=== PATIENT | female | born 2000 | race Caucasian/White ===

== ENCOUNTER 2022-07-24 22:46 | Emergency (ER) | payer OTHER, SELFPAY ==
--- NOTE | ~2022-07-24 | CT_ITS ---
EXAMINATION: CT ABDOMEN AND PELVIS WITH CONTRAST CLINICAL INFORMATION: Right lower quadrant pain COMPARISON: None TECHNIQUE: Multidetector volumetric images were obtained from the superior aspect of the liver through the pubic symphysis following administration 85 mL of Omnipaque 350 intravenous contrast. Sagittal and coronal reformatted images were obtained on the technologist's workstation. Oral contrast: No This CT examination was performed using dose optimization techniques as appropriate, variously including the following: *Automated exposure control *Adjustment of mA and/or kV according to patient size (this includes techniques or standardized protocols for targeted exams where dose is matched to indication/reason for exam; i.e. extremities or head) *Use of iterative reconstruction technique DLP: 401 mGy-cm FINDINGS: LUNG BASES: The visualized lung bases are unremarkable. LIVER, GALLBLADDER, AND BILIARY TREE: The liver is normal in size, shape, and attenuation. No focal hepatic lesion or biliary ductal dilatation is present. The gallbladder is unremarkable with no evidence of radiopaque gallstones, gallbladder wall thickening, or obvious pericholecystic inflammatory changes. PANCREAS: Unremarkable. SPLEEN: Unremarkable. ADRENAL GLANDS: Unremarkable. KIDNEYS AND URETERS: The kidneys are normal in size, shape, and attenuation. No hydronephrosis, hydroureter, or calculi seen. No perinephric stranding. BLADDER: Unremarkable. GASTROINTESTINAL TRACT: The stomach is unremarkable. Normal caliber small bowel. No obstruction. Normal appendix. Fluid-filled colon without wall thickening. Stool in the rectum. No free air. Small volume of pelvic free fluid. ABDOMINAL WALL: No significant hernia is appreciated. LYMPH NODES: Normal. VASCULAR: Unremarkable. PELVIC VISCERA: Anteverted uterus. Complex appearing cysts in the right adnexa. The largest measures 2.6 cm. No left adnexal mass. OSSEOUS STRUCTURES: No acute or suspicious osseous abnormality. CT/CT abdomen pelvis w IV con IMPRESSION: Complex right adnexal cystic structures. Small amount of pelvic free fluid. This could be a ruptured cyst, though cannot exclude other process. This can be further evaluated with pelvic ultrasound. Fleischner guidelines were followed.
--- NOTE | ~2022-07-24 | US_ITS ---
EXAMINATION: ULTRASOUND OF THE PELVIS CLINICAL INFORMATION: Lower abdominal/pelvic pain.. COMPARISON: CT from today.. TECHNIQUE: Transabdominal pelvic ultrasound. Doppler evaluation with spectral analysis was performed. A transvaginal study was not performed as the patient declined. FINDINGS: The uterus is normal in size and appearance, measuring 6.7 x 3.1 x 4.9 cm longitudinally, anteroposteriorly and transversely. The endometrial stripe thickness is normal, measuring 0.7 cm in thickness. No focal myometrial mass is seen. The ovaries bilaterally are visualized, with the right ovary measuring 5.8 x 3.3 x 4.2 cm and the left ovary measuring 3.2 x 1.8 x 2.6 cm. Complex thick-walled right ovarian cyst measures 3.9 x 2.6 x 2.4 cm. There are normal arterial and venous spectral waveforms bilaterally. Small volume of pelvic free fluid. US/US pelvic complete IMPRESSION: No active ovarian torsion. Small volume of pelvic free fluid. Prominent complex thick-walled right adnexal cyst, possibly a hemorrhagic cyst. This measures 3.2 cm. No follow-up imaging recommended.
--- NOTE | ~2022-07-24 | US_ITS ---
EXAMINATION: ULTRASOUND OF THE PELVIS CLINICAL INFORMATION: Lower abdominal/pelvic pain.. COMPARISON: CT from today.. TECHNIQUE: Transabdominal pelvic ultrasound. Doppler evaluation with spectral analysis was performed. A transvaginal study was not performed as the patient declined. FINDINGS: The uterus is normal in size and appearance, measuring 6.7 x 3.1 x 4.9 cm longitudinally, anteroposteriorly and transversely. The endometrial stripe thickness is normal, measuring 0.7 cm in thickness. No focal myometrial mass is seen. The ovaries bilaterally are visualized, with the right ovary measuring 5.8 x 3.3 x 4.2 cm and the left ovary measuring 3.2 x 1.8 x 2.6 cm. Complex thick-walled right ovarian cyst measures 3.9 x 2.6 x 2.4 cm. There are normal arterial and venous spectral waveforms bilaterally. Small volume of pelvic free fluid. US/US pelvic ovarian doppler IMPRESSION: No active ovarian torsion. Small volume of pelvic free fluid. Prominent complex thick-walled right adnexal cyst, possibly a hemorrhagic cyst. This measures 3.2 cm. No follow-up imaging recommended.
[2022-07-24 23:23] VITALS: BP 145/85; PULSE 109; RESP 22; TEMP 36.8; O2SAT 100; BMI 20.1
[2022-07-24 23:49] LABS: Baso%MD 0.2 %; Hematocrit 42.4 % (37.0-47.0); Hemoglobin 14.4 g/dl (12.0-16.0); IG%MD 0.4 %; Lymph%MD 7.5 %; Mean Corpuscular Hemoglobin 28.7 pg (27.0-33.0); Mean Corpuscular Volume 84.6 fL (80.0-98.0); Mean Platelet Volume 9.1 fL (9.4-12.3); Mono%MD 4.4 %; Neut%MD 85.5 %; Platelet Count 351 X10*3/uL (160-400); Red Blood Count 5.01 X10*6/uL (4.20-5.50); Red Cell Distribution Width 12.3 % (11.0-16.0); White Blood Count 17.9 X10*3/uL (4.8-10.8)
[2022-07-24 23:50] LABS: Appearance Urine Turbid; Color Urine Yellow; Glucose Urine UA Negative (Negative); Leukocyte Esterase Urine Small (1+) (Negative); Nitrite Urine Negative (Negative); Specific Gravity - Urine 1.025 (1.005-1.025); UMIC TRIGGER UACC YES; Urine Blood Negative (Negative); Urine Ketones Negative (Negative); Urine Protein Negative (Neg-Trace)
[2022-07-24 23:52] LABS: UPreg QC Valid YES; Urine Pregnancy NEGATIVE (NEGATIVE)
[2022-07-25 00:09] LABS: Bacteria Urine Trace (None Seen); Hyaline Casts Urine 0-2 /LPF (0-2); Other Crystals Urine Present; RBC Urine 0-2 /HPF (0-2); UACC Culture Trigger YES; WBC Urine 0-5 /HPF (0-5)
[2022-07-25 00:23] LABS: Band Neutrophils Percent 4 % (3-5); Eosinophils Absolute Manual 0.4 X10*3/uL (0.0-0.4); Eosinophils Percent Manual 2 % (0-4); Lymphocytes Percent Manual 11 % (20-40); Monocytes Absolute Manual 0.5 X10*3/uL (0.1-1.2); Monocytes Percent Manual 3 % (2-11); Neutrophils Percent Manual 80 % (45-73)
--- NOTE | 2022-07-25 00:23 | ED_ITS ---
HPI - Abdominal Pain General Chief Complaint: Abdominal Pain Stated Complaint: Vomiting/Lower abd pain Time Seen by Provider: 07/25/22 00:23 Source: patient and family ( Mother) Mode of arrival: ambulatory History of Present Illness HPI narrative: 21-year-old female with history of ovarian cyst presents with acute onset of lower abdominal discomfort that has progressively worsened and patient denies any radiation. The pain is associated with nausea, vomiting, chills and she has no previous history of surgeries. Related Data Previous Rx's Medication Instructions Recorded ketorolac 10 mg tablet 10 mg PO Q6H PRN pain 5 days #20 07/25/22 tabs ondansetron HCl 4 mg tablet 4 mg PO Q8H PRN nausea and 07/25/22 vomiting #10 tabs Allergies Allergy/AdvReac Type Severity Reaction Status Date / Time Unable to Assess Allergy Verified 07/25/22 00:26 Review of Systems Review of Systems Pertinent positives and negatives as stated in HPI 10 point review of systems is otherwise negative. [facility] Past Medical History Source: nursing notes reviewed Social History Social History Advance Directives: No Advance Directives Information Provided: Yes Physical Exam ED Vital Signs: Vital Signs - 24 hr 07/24/22 23:23 07/25/22 03:26 Temperature 98.3 F Pulse Rate 109 H Respiratory Rate 22 H 18 Blood Pressure 145/85 H Pulse Oximetry 100 Oxygen Delivery Method Room Air BMI result Body Mass Index 20.1 VITAL SIGNS: Reviewed. GENERAL: Well developed, well nourished, in no acute distress. HEAD: Normocephalic/atraumatic EYES: PERRLA, EOMI EARS: Ext canals without abnormality OROPHARYNX: no oral lesions noted, posterior pharynx clear LUNGS: Normal breath sounds. No adventitious sounds or accessory muscle use. SpO2<100> CARDIOVASCULAR: Regular rate and rhythm without noted murmurs ABDOMEN: Soft, lower abdominal pain, non-distended with bowel sounds. MUSCULOSKELETAL: No tenderness, deformities, or effusions noted on gross inspection. EXTREMITIES: No cyanosis, clubbing or edema. SKIN: Inspection of the skin reveals no rashes NEUROLOGIC: Alert and oriented x 4. Strength and sensation to light touch were grossly intact x 4. Course Course Course Narrative: 21-year-old female with history and clinical presentation suggestive of possible ectopic, ovarian torsion, appendicitis, and less likely renal colic. Review of all investigations suggests possible ruptured ovarian cyst, patient received IV fluids, pain medication as well as antinausea medication and has ultrasound pending. Signed out to Dr Maldonado. MDM - Abdominal Pain Lab Data Result diagrams: 07/24/22 23:41 07/24/22 23:41 Labs: Lab Results 07/24/22 07/24/22 07/24/22 Range/Units 23:41 23:41 23:41 WBC 17.9 H (4.8-10.8) X10*3/uL RBC 5.01 (4.20-5.50) X10*6/uL Hgb 14.4 (12.0-16.0) g/dl Hct 42.4 (37.0-47.0) % MCV 84.6 (80.0-98.0) fL MCH 28.7 (27.0-33.0) pg MCHC 34.0 (31.0-35.0) g/dl RDW 12.3 (11.0-16.0) % Plt Count 351 (160-400) X10*3/uL MPV 9.1 L (9.4-12.3) fL Absolute Nucleated RBC 0.000 (0.0-0.012) X10*3/uL Nucleated RBC % (auto) 0.0 (0.0-0.2) /100WBC Neutrophils % (Manual) 80 H (45-73) % Band Neutrophils % 4 (3-5) % Lymphocytes % (Manual) 11 L (20-40) % Monocytes % (Manual) 3 (2-11) % Eosinophils % (Manual) 2 (0-4) % Abs Neuts (Manual) 15.0 H (2.0-8.3) X10*3/uL Lymphocytes # (Manual) 2.0 (1.2-4.9) X10*3/uL Monocytes # (Manual) 0.5 (0.1-1.2) X10*3/uL Eosinophils # (Manual) 0.4 (0.0-0.4) X10*3/uL Platelet Estimate NORMAL (NORMAL) Plt Morphology Comment NORMAL RBC Morphology NORMAL Sodium 137 (135-145) mmol/L Potassium 4.0 (3.3-5.1) mmol/L Chloride 103 (96-108) mmol/L Carbon Dioxide 19 L (22-29) mmol/L Anion Gap 19 (12-20) Lactic Acid (0.5-2.0) mmol/L Urine Color Yellow Urine Appearance Turbid Urine pH 7.0 (5.0-9.0) Ur Specific [place] 1.025 (1.005-1.025) Urine Protein Negative (Neg-Trace) mg/dL Urine Glucose (UA) Negative (Negative) mg/dL Urine Ketones Negative (Negative) mg/dL Urine Blood Negative (Negative) Urine Nitrite Negative (Negative) Ur Leukocyte Esterase Small (1+) H (Negative) Urine RBC 0-2 (0-2) /HPF Urine WBC 0-5 (0-5) /HPF Ur Squamous Epith Cells 3-5 (0-2) /HPF Other Crystals Present Urine Bacteria Trace (None Seen) Hyaline Casts 0-2 (0-2) /LPF Urine Test (NEGATIVE) 07/24/22 07/25/22 Range/Units 23:41 01:12 WBC (4.8-10.8) X10*3/uL RBC (4.20-5.50) X10*6/uL Hgb (12.0-16.0) g/dl Hct (37.0-47.0) % MCV (80.0-98.0) fL MCH (27.0-33.0) pg MCHC (31.0-35.0) g/dl RDW (11.0-16.0) % Plt Count (160-400) X10*3/uL MPV (9.4-12.3) fL Absolute Nucleated RBC (0.0-0.012) X10*3/uL Nucleated RBC % (auto) (0.0-0.2) /100WBC Neutrophils % (Manual) (45-73) % Band Neutrophils % (3-5) % Lymphocytes % (Manual) (20-40) % Monocytes % (Manual) (2-11) % Eosinophils % (Manual) (0-4) % Abs Neuts (Manual) (2.0-8.3) X10*3/uL Lymphocytes # (Manual) (1.2-4.9) X10*3/uL Monocytes # (Manual) (0.1-1.2) X10*3/uL Eosinophils # (Manual) (0.0-0.4) X10*3/uL Platelet Estimate (NORMAL) Plt Morphology Comment RBC Morphology Sodium (135-145) mmol/L Potassium (3.3-5.1) mmol/L Chloride (96-108) mmol/L Carbon Dioxide (22-29) mmol/L Anion Gap (12-20) Lactic Acid 2.3 H* (0.5-2.0) mmol/L Urine Color Urine Appearance Urine pH (5.0-9.0) Ur Specific [place] (1.005-1.025) Urine Protein (Neg-Trace) mg/dL Urine Glucose (UA) (Negative) mg/dL Urine Ketones (Negative) mg/dL Urine Blood (Negative) Urine Nitrite (Negative) Ur Leukocyte Esterase (Negative) Urine RBC (0-2) /HPF Urine WBC (0-5) /HPF Ur Squamous Epith Cells (0-2) /HPF Other Crystals Urine Bacteria (None Seen) Hyaline Casts (0-2) /LPF Urine Test NEGATIVE (NEGATIVE) Discharge Plan Discharge Clinical Impression: Abdominal pain Patient Disposition: Still a Patient Instructions: Abdominal Pain (ED) Additional Instructions: 1. Tylenol 1000 mg, orally, every 6 hours as needed for pain control. Do not exceed 4000 mg within 24 hours. 2. You have been provided with a prescription for antinausea medication as well as additional pain medication. 3. Recommend following up with your primary care provider in the next 1-2 days. Return to the ER for worsening symptoms. Prescriptions: New ketorolac 10 mg tablet 10 mg PO Q6H PRN (Reason: pain) 5 Days Qty: 20 0RF Rx Instructions: patient received Toradol in the emergency room. ondansetron HCl 4 mg tablet 4 mg PO Q8H PRN (Reason: nausea and vomiting) Qty: 10 0RF Stand Alone Forms: Work/School Release
[2022-07-25 00:24] LABS: Platelet Estimate NORMAL (NORMAL); Platelet Morphology Comment NORMAL; RBC Morphology NORMAL
[2022-07-25 00:42] LABS: Anion Gap 19 (12-20); Carbon Dioxide 19 mmol/L (22-29); Chloride 103 mmol/L (96-108); Sodium 137 mmol/L (135-145)
[2022-07-25] MEDS: 0.9 % Sodium Chloride 1,000 ML 999 ML IV (01:14)
[2022-07-25] MEDS: Ketorolac Tromethamine 30 MG/ML VIAL 15 MG IVPUSH (01:14)
[2022-07-25] MEDS: ondansetron HCL 4 MG/2 ML VIAL IVPUSH ×2 (01:14→04:04)
[2022-07-25 01:37] LABS: Lactic Acid 2.3 mmol/L (0.5-2.0)
[2022-07-25] MEDS: iohexoL 350 MG/ML 100 ML INFUS..BTL 85 ML IV (02:01)
[2022-07-25 03:26] VITALS: RESP 18
[2022-07-25 03:26] LABS: Reflex Lactate? Lactic Acid Added
[2022-07-25] MEDS: fentaNYL citrate/PF 100 MCG/2 ML VIAL 12.5 MCG IVPUSH (03:26)
[2022-07-25 04:00] VITALS: BP 106/74; PULSE 76; RESP 16; TEMP 36.8; O2SAT 94
== END 2022-07-25 04:55 | disposition home or self-care (01) ==
PROVIDERS: Emergency Provider Student in an Organized Health Care Education/Training Program
DX: R10.30 Lower abdominal pain, unspecified (principal)
CPT/HCPCS: 36415; 74177; 76830; 76856; 80051; 81001; 81025; 83605; 85007; 85027; 87040; 87086; 93975; 96361; 96374; 96375; 96376; 99284; J1885; J2405; J3010; Q9967